=== PATIENT | female | born 1930 | race Caucasian/White ===

== ENCOUNTER 2017-06-17 17:45 | Emergency (ER) | payer OTHER ==
[~2017-06-17] VITALS: Ht 149.9 cm; Wt 47.6 kg
[~2017-06-17 17:45] MED LIST: CEPHALEXIN500 M1; COZAAR50 MG; METOPROLOL SUC100 MG; MUPIROCIN0.9 GM; PRILOSEC20 MG; SYSTANE 0.3-0.415 ML
[2017-06-17] MEDS ORDERED: LOSARTAN POTAS100 MG (18:02)
== END 2017-06-17 22:52 | disposition home or self-care (01) ==
LOC: ER 17:45 → CPU-OBS 18:14 → ER 22:52
DX: R00.0 Tachycardia, unspecified (principal); R00.2 Palpitations

== ENCOUNTER → 2017-09-28 | Emergency (ER) | payer OTHER ==
[~2017-09-28] VITALS: Ht 149.9 cm; Wt 45.4 kg
[~2017-09-28] MED LIST changes: +BACTRIM DS TAB1 EACH PO; +LOSARTAN POTAS100 MG; +SYNTHROID100 MCG
== END | disposition home or self-care (01) ==
LOC: ER 11:46
DX: N39.0 Urinary tract infection, site not specified (principal)

== ENCOUNTER 2017-12-01 13:34 | Emergency (ER) | payer OTHER ==
[~2017-12-01] VITALS: Ht 149.9 cm; Wt 45.4 kg
[2017-12-01] MEDS ORDERED: PREDNISONE5 M1 PO (13:41)
[2017-12-01] MEDS ORDERED: INDAPAMIDE1.25 MG PO (13:41)
[2017-12-01] MEDS ORDERED: ZYNCOF 20-400120 ML PO (13:42)
== END 2017-12-01 16:13 | disposition home or self-care (01) ==
LOC: ER 13:34
DX: J06.9 Acute upper respiratory infection, unspecified (principal)

== ENCOUNTER 2017-12-07 03:31 | Emergency (ER) | payer OTHER ==
[~2017-12-07] VITALS: Ht 149.9 cm; Wt 45.4 kg
[~2017-12-07 03:31] MED LIST changes: +INDAPAMIDE1.25 MG PO; +PREDNISONE5 M1 PO; +ZYNCOF 20-400120 ML PO
== END 2017-12-07 13:40 | disposition home or self-care (01) ==
LOC: ER 03:31
DX: J22 Unspecified acute lower respiratory infection (principal)

== ENCOUNTER 2019-02-15 14:01 | Emergency (ER) | payer OTHER ==
[~2019-02-15] VITALS: Ht 149.9 cm; Wt 40.8 kg
[2019-02-15] MEDS ORDERED: FOLIC ACID1 MG (14:25)
[2019-02-15] MEDS ORDERED: G-ZYNCOF 20-40473 ML (14:27)
== END 2019-02-15 21:48 | disposition home or self-care (01) ==
LOC: ER 14:01
DX: J45.998 Other asthma (principal)

== ENCOUNTER 2019-02-22 07:49 | Outpatient (CLI) | payer OTHER ==
[~2019-02-22 07:49] MED LIST changes: +FOLIC ACID1 MG; +G-ZYNCOF 20-40473 ML
== END 2019-02-22 07:59 | disposition home or self-care (01) ==
LOC: TOM 07:49
DX: J45.41 Moderate persistent asthma with (acute) exacerbation (principal); J98.11 Atelectasis; R06.02 Shortness of breath